=== PATIENT | female | born 1980 | race Asian ===

== ENCOUNTER → 2016-09-16 | Outpatient (CLI) | payer OTHER | END | disposition home or self-care (01) | LOC: GMAB 10:20 | PROVIDERS: ATTEND Family Medicine | DX: R51 Headache (principal); R53.82 Chronic fatigue, unspecified ==

== ENCOUNTER 2016-10-12 05:57 | Observation (INO) | payer OTHER ==
--- NOTE | 2016-10-12 06:04 | ED.PDOC ---
History of Present Illness - General Source: patient, family - Exam Limitations: no limitations - History of Present Illness Initial Comments: Ms. Esparza Mac 36 y/o female stated that her illness started yesterday weird neck pain radiating to the back of her head feeling dizzy,felt heart was racing then last had on and off nausea and vomiting.Denies remote history of head injury,migraines,fever,travel outside the [place].She started taking Trintellix for her anxiety and depression prescribed by a local md which helped her symptoms. Timing/Duration: 24 hours Severity: moderate Improving Factors: rest Worsening Factors: eating Associated Symptoms: headaches, nausea/vomiting, weakness <Jadon Chandra - Last Filed: 10/12/16 06:45> <Nichole Singh - Last Filed: 10/12/16 10:11> - General Chief Complaint: GI Problem Stated Complaint: nausea/vomiting Time Seen by Provider: 10/12/16 06:01 - History of Present Illness Allergies/Adverse Reactions: Allergies NO KNOWN ALLERGY Allergy (Verified 10/12/16 06:06) Home Medications: Ambulatory Orders Aspirin [Aspirin Adult Low Dose] 81 mg PO DAILY 10/12/16 Vortioxetine HBr [Brintellix] 10 mg PO DAILY 10/12/16 Review of Systems - Review of Systems Constitutional: States: no symptoms reported EENTM: States: no symptoms reported Respiratory: States: no symptoms reported Cardiology: States: see HPI Gastrointestinal/Abdominal: States: see HPI Genitourinary: States: no symptoms reported Musculoskeletal: States: no symptoms reported Skin: States: no symptoms reported Neurological: States: no symptoms reported, anxiety, depressed, headache Endocrine: States: no symptoms reported Hematologic/Lymphatic: States: no symptoms reported <Jadon Chandra R - Last Filed: 10/12/16 06:45> Past Medical History (General) - Patient Medical History Hx Seizures: No Hx Stroke: No Hx Dementia: No Hx Asthma: No Hx of COPD: No Hx Cardiac Disorders: No Hx Congestive Heart Failure: No Hx Pacemaker: No Hx Hypertension: No Hx Thyroid Disease: No Hx Diabetes: No Hx Gastroesophageal Reflux: No Hx Renal Disease: No Hx Cancer: No Hx of HIV: No Hx Hepatitis C: No Hx MRSA: No Hx Other PMH: Yes - anxiety/depression Surgical History: no surgical history - Vaccination History Hx Tetanus, Diphtheria Vaccination: No Hx Influenza Vaccination: No Hx Pneumococcal Vaccination: No - Social History Hx Tobacco Use: No Hx Chewing Tobacco Use: No Hx Alcohol Use: No Hx Substance Use: No Hx Substance Use Treatment: No Hx Depression: No Hx Physical Abuse: No Hx Emotional Abuse: No Hx Suspected Abuse: No - Activities of Daily Living Patient Lives Alone: No - family - Female History Patient is a Female of Child Bearing Age (10 -59 yrs old): Yes Hx Last Menstrual Period: 10/04/16 Patient : No <PatriciaZoya hardingo R - Last Filed: 10/12/16 06:45> Family Medical History - Family History Mother Family History: No Known <PatriciaZoya hardingo R - Last Filed: 10/12/16 06:45> Physical Exam - Physical Exam General Appearance: No apparent distress, Ill Appearing Eye Exam: bilateral normal Ears, Nose, Throat: hearing grossly normal, normal ENT inspection, normal pharynx Neck: non-tender, full range of motion, supple, normal inspection Respiratory: chest non-tender, lungs clear, normal breath sounds, no respiratory distress Cardiovascular/Chest: normal peripheral pulses, regular rate, rhythm, no edema, no gallop, no JVD, no murmur Peripheral Pulses: radial,right: 2+, radial,left: 2+ Gastrointestinal/Abdominal: normal bowel sounds, non tender, soft, no organomegaly Back Exam: normal inspection, no CVA tenderness, no vertebral tenderness Extremity: normal range of motion, non-tender, normal inspection, no pedal edema Neurologic: no motor/sensory deficits, oriented x 3 Skin Exam: normal color, warm/dry Lymphatic: no adenopathy <PatriciaZoya hardingo R - Last Filed: 10/12/16 06:45> Progress - Progress Progress: 10/12/16 07:24 Patient currently has no headache but is still feeling dizzy. Will give another L of NS and see how she feels after that. Her labs look good and her head CT is normal. 10/12/16 08:09 She is still c/o nausea. Will try some IV Protonix as IV Phenergan is on back order. 10/12/16 08:37 Still having dizziness which is worse with movement. Will try Meclazine. 10/12/16 09:18 Patient is still nauseated and dizzy. Will try Phenergan Suppository. 10/12/16 10:09 Patient still with intractable nausea and dizziness. Discussed with Dr. Leon. Will admit to observation for further management. Patient agrees to admission. <Nichole Singh - Last Filed: 10/12/16 10:11> Departure <Jadon Chandra - Last Filed: 10/12/16 06:45> - Departure Time of Disposition: 10:11 <Nichole Singh - Last Filed: 10/12/16 10:11> - Departure Clinical Impression: Dizziness of unknown cause Intractable vomiting with nausea Qualifiers: Vomiting type: unspecified Qualifier Code: (R11.2) Nausea with vomiting, unspecified Disposition: Admit Patient Condition: Fair Home Medications: Ambulatory Orders Aspirin [Aspirin Adult Low Dose] 81 mg PO DAILY 10/12/16 Vortioxetine HBr [Brintellix] 10 mg PO DAILY 10/12/16 Decision To Admit - Decistion To Admit Decision to Admit Reason: Admit from ER - Intractable nausea and vomiting, Dizziness <Nichole Singh - Last Filed: 10/12/16 10:11>
[2016-10-12] MEDS ORDERED: SODIUM CHLORIDE 0.9% 1000ML 1,000 ML IVS ONE ×2 (06:05→07:24)
[2016-10-12] MEDS ORDERED: ONDANSETRON INJ 4 MG/2 ML VIAL ONE (06:11)
[2016-10-12] MEDS ORDERED: ONDANSETRON INJ 4 MG/2 ML VIAL IV ONE ×2 (06:18→07:28)
--- NOTE | 2016-10-12 07:20 | CT ---
EXAM: CT head without contrast. INDICATION: Headache. TECHNIQUE: Contiguous axial CT images of the brain. Intravenous contrast: Absent. DLP 677 mGy-cm. This exam was performed according to our departmental dose-optimization program, which includes automated exposure control, adjustment of the mA and/or kV according to patient size and/or use of iterative reconstruction technique. COMPARISON: 03/01/2014. FINDINGS: Subcutaneous: Unremarkable. No acute intracranial hemorrhage. No midline shift. No mass effect. Ventricles: No hydrocephalus. Bates-white differentiation preserved. Paranasal sinuses/mastoid air cells: Visualized portions are aerated. Bones/orbits: Visualized portions are unremarkable. IMPRESSION: 1. No CT evidence of acute intracranial hemorrhage. Electronically signed by: Herman Ocasio MD 10/12/2016 7:19 AM CDT
[2016-10-12] MEDS ORDERED: PANTOPRAZOLE SODIUM IV 40 MG VIAL IV ONE (08:07)
[2016-10-12] MEDS ORDERED: SODIUM CHLORIDE 0.9% 10 ML VIAL ONE (08:13)
[2016-10-12] MEDS ORDERED: MECLIZINE HCL 12.5 MG TAB PO ONE (08:36)
[2016-10-12] MEDS ORDERED: MECLIZINE HCL 12.5 MG TAB ONE (08:37)
[2016-10-12] MEDS ORDERED: PROMETHAZINE SUPP 25 MG SUP PR ONE (09:17)
--- NOTE | 2016-10-12 10:19 | HP ---
HISTORY OF PRESENT ILLNESS: This 36-year-old, [place] woman is admitted to the hospital via the Emergency Room after becoming extremely weak with protracted nausea and vomiting with associated posterior headache since last evening. No one else is sick in the family. No previous history of similar symptoms in the past. Any type of getting up out of the bed and going to the bathroom made her symptoms worse and any movements of her head aggravated the dizziness. No previous history of fatty food intolerance. In the Emergency Room, she was found to be somewhat dehydrated, requiring 2 liters of IV fluids and was given medications to include Phenergan and meclizine to help with the significant nausea. She failed to fully improve and was eventually suggested to be observed in the hospital overnight to try to help some of her ongoing symptoms during this acute episode. PAST MEDICAL HISTORY: None. PAST SURGICAL HISTORY: None. CURRENT MEDICATIONS: None, except she did start a new medicine called Trintellix recently and it also has a symptom profile to include some of her above symptoms. ALLERGIES: NONE. FAMILY HISTORY: Positive for father dying of cancer of the liver from alcohol drinking in the [place]. SOCIAL HISTORY: She works in a pharmacy. She is and has one daughter. She does not smoke and rarely takes a bare sip of alcoholic beverages with her . REVIEW OF SYSTEMS: GENERAL: No significant weight change, fever or chills. HEENT: Slightly decreased hearing on the left noted. No sore throat or runny nose. LUNGS: No significant shortness of breath or cough. Generally clear. CARDIOVASCULAR: No palpitations or chest pains. GASTROINTESTINAL: Severe nausea and vomiting with her current illness. No diarrhea or blood in the stools. GENITOURINARY: No dysuria. NEUROLOGIC: She has been feeling a little tired recently and has had some laboratory workup by Dr. Cunha this past month, which was reported as being within normal limits. It is of note she is working very hard at her work and is also going to school and frequently has to wake up at 3 in the morning in order to study and to get caught up on other work she needs to do. PHYSICAL EXAMINATION: VITAL SIGNS: Afebrile. Pulse 60. Blood pressure 106/74. Pulse oximetry 100% on room air. Weight 60.8 kg. GENERAL: The patient is awake, alert, oriented and communicative. Just rolling over on the bed from the left side to being flat in the bed for the exam resulted in significant worsening of her dizzy symptoms and transient left sided fast action vertigo was noted with nystagmus. HEENT: Other than the transient nystagmus, no other abnormalities noted. Hearing appears to be somewhat decreased on gross examination on the left ear. Exam in the Emergency Room failed to reveal any cerumen plugs. NECK: Supple with no adenopathy. LUNGS: Clear. CARDIOVASCULAR: Heart tones are regular without any significant gallops. ABDOMEN: Soft with some slight epigastric tenderness transiently noted on examination. No masses noted. EXTREMITIES: Well-formed with good range of motion. NEUROLOGIC: Otherwise within normal limits except for the severe nausea aggravated by certain movements, especially of the head. LABORATORY: White count 4,700, hemoglobin 13.4. Chemistries show sodium 137, potassium low at 3.1, BUN 10, creatinine 0.4, glucose 118, calcium 8.8. Liver enzymes normal except alkaline phosphatase 41. Albumin 4.1. test on blood negative. Urinalysis generally unremarkable. Negative drug screen. No cultures obtained. Head CT showed no acute findings. ASSESSMENT: 1. Acute positional vertigo, probably related to a vestibular neuronitis, possible left ear with nystagmus fast action to the left slightly decreased hearing on the left, but no CT evidence on head exam suggestive of acoustic neuroma or other pathology at this time. 2. Moderate dehydration. 3. Protracted nausea and vomiting. 4. Mild hypokalemia with supplementation started. 5. Chronic fatigue state. PLAN: The patient will be observed closely with parenteral fluid supplementation to include D5 and half normal saline with potassium supplements. Started on a full liquid diet to advance to a soft diet by tomorrow as tolerated. Try to minimize movements, especially those that aggravate her symptoms. Continue with meclizine 25 mg q.6h. for four doses, then p.r.n. thereafter. We will continue to observe closely and support as possible. Close followup with Dr. Cunha after discharge is important. #[id number] [facility]
[2016-10-12] MEDS ORDERED: SODIUM CHLORIDE 0.9% (FLUSH) 10 ML SYG IV PRN (12:15)
[2016-10-12] MEDS ORDERED: ONDANSETRON INJ 4 MG/2 ML VIAL IV PRN (12:17)
[2016-10-12] MEDS ORDERED: ACETAMINOPHEN 325 MG TAB PO PRN (12:17)
[2016-10-12] MEDS ORDERED: MAGNESIUM HYDROXIDE 30 ML UD PO PRN (12:17)
[2016-10-12] MEDS ORDERED: PROMETHAZINE HCL INJ 12.5 MG in SODIUM CHLORIDE 0.9% 50ML 50 ML IVPB PRN (12:23)
[2016-10-12] MEDS ORDERED: IV SET AND CAP CHANGE INJ INJ SCH (12:30)
[2016-10-12] MEDS ORDERED: D5 IVS ONE (13:23)
[2016-10-12] MEDS ORDERED: [UNRECOGNIZED DRUG - OTHER] IVS ONE (13:23)
[2016-10-12] MEDS ORDERED: KCL IVS ONE (13:23)
[2016-10-12] MEDS ORDERED: POTASSIUM CHLORIDE 20 MEQ TAB ONE (13:24)
[2016-10-12] MEDS: MECLIZINE HCL 12.5 MG TAB PO SCH ×2 (13:34→18:56)
[2016-10-12] MEDS: POTASSIUM CHLORIDE 10 MEQ TAB PO SCH (13:37)
[2016-10-12] MEDS: KCL 20MEQ/D5 1/2NS 1,000 ML IVS PRN (13:37)
[2016-10-12] MEDS ORDERED: PROMETHAZINE SUPP 25 MG SUP PR PRN (14:34)
[2016-10-13] MEDS: MECLIZINE HCL 12.5 MG TAB PO SCH ×2 (00:23→05:56)
[2016-10-13] MEDS ORDERED: KCL 20MEQ/0.45% NS 1,000 ML IVS ONE (00:56)
[2016-10-13] MEDS: KCL 20MEQ/D5 1/2NS 1,000 ML IVS PRN (02:06)
[2016-10-13] MEDS ORDERED: OMEPRAZOLE CAP 20 MG CAP ONE (05:02)
[2016-10-13] MEDS ORDERED: OMEPRAZOLE CAP 20 MG CAP PO SCH (06:30)
[2016-10-13 07:03] VITALS: BP 105/65; TEMP 97.6; O2SAT 100
[2016-10-13] MEDS ORDERED: ASPIRIN EC 81 MG TAB PO ONE (07:21)
[2016-10-13] MEDS: POTASSIUM CHLORIDE 10 MEQ TAB PO SCH (07:48)
[2016-10-13] MEDS ORDERED: ASPIRIN EC 81 MG TAB PO SCH (09:00)
--- NOTE | 2016-10-13 10:47 | DS ---
DISCHARGE DIAGNOSIS: 1. Acute positional vertigo, probably related to a vestibular neuronitis, with symptoms seemingly located on the left with rapid action nystagmus towards the left and slightly decrease hearing on the left with no CT evidence of head pathology noted. 2. Moderate dehydration, requiring supplementation. 3. Protracted nausea and vomiting, showing some slow, steady improvement. 4. Mild hypokalemia, showing improvement with supplementation. 5. Chronic fatigue state, to have further followup in the clinic. HISTORY OF PRESENT ILLNESS: This 36-year-old, [place] woman is admitted to the hospital via Dr. Cunha's clinic for specific treatment and support because of an overwhelming sensation of dizziness with associated nausea and vomiting. Fairly acute onset was noted with associated posterior headache last evening. In the Emergency Room, she received 2 liters of IV fluids and was given multiple medications, which seemed to help with the significant pain in her head , but failed to improve the significant nausea and vomiting and prostration related. CT head showed no acute findings. She was placed in the hospital for overnight observation to help control some of the symptoms. She had been started on a new medicine called Trintellix, which may be held for a while to see if she feels better and better and then if she starts it again and the symptoms return, she may be able to blame this medication. LABORATORY: White count 4,700, hemoglobin down to 12.5. Chemistries show potassium up from 3.1 to 3.9 with supplementation. BUN was normal. Creatinine 0.54. Glucose 99 on discharge. Serum osmolality low at 273. Calcium normal at 8.6. Liver enzyme single-guarded. Albumin 3.6. test negative. Urinalysis generally clean. Drug screen negative. No cultures obtained. X- ray of the head with CT exam showed no acute findings. HOSPITAL COURSE: The patient was feeling much improved on the morning of discharge, though still was very weak, but was feeling much improved with the nausea, vomiting and the severe dizziness. PLAN: The patient was ready to have continued followup in the outpatient clinic with Dr. Cunha. Appointment has already been made with Dr. Cunha in two days in the clinic when she will be reevaluated. He can give her a note to allow her to return to work when feeling better. She is to stay well hydrated, avoid rapid head movements. Return if not improving. Her home medicines can be continued except stop the antidepressant medicine for now. Try a baby aspirin 81 mg daily, meclizine 25 mg 3 times a day as needed for dizziness, Zofran 4 mg q.6h. p.r.n. nausea, and Micro-K 10 mEq q.a.m. for the next 3 or 4 weeks, then stop. Close followup and management with Dr. Cunha is encouraged. #[id number] [facility]
== END 2016-10-13 11:37 | disposition home or self-care (01) ==
LOC: ER 05:57 → MS 10:18
PROVIDERS: ADMIT Emergency Medicine; ATTEND Emergency Medicine
DX: H81.12 Benign paroxysmal vertigo, left ear (principal); E86.0 Dehydration; R11.2 Nausea with vomiting, unspecified; E87.6 Hypokalemia; R53.82 Chronic fatigue, unspecified; R51 Headache; M54.2 Cervicalgia; F41.9 Anxiety disorder, unspecified; F32.9 Major depressive disorder, single episode, unspecified; Z79.82 Long term (current) use of aspirin; Z79.899 Other long term (current) drug therapy; Z80.0 Family history of malignant neoplasm of digestive organs

== ENCOUNTER → 2017-09-29 | Outpatient (CLI) | payer OTHER | LOC: GMAB 10:54 | PROVIDERS: ATTEND Family Medicine | DX: Z00.01 Encounter for general adult medical examination with abnormal findings (principal) ==